=== PATIENT | male | born 1990 | race African-American/Black ===

== ENCOUNTER 2017-11-06 22:16 | Emergency (ER) | payer MEDICAID ==
[~2017-11-06] VITALS: Ht 195.6 cm; Wt 113.4 kg
[2017-11-06 22:25] VITALS: BP 133/81
[2017-11-06] MEDS ORDERED: Ketorolac 30mg Inj IV ONE (23:15)
[2017-11-06] MEDS ORDERED: Dicyclomine HCl 10mg/5ml oral soln ORAL ONE (23:15)
[2017-11-06 23:47] LABS: ANION GAP 6 mmol/L (5-15); BLOOD UREA NITROGEN 16 mg/dL (7-18); CALCIUM 9.2 MG/DL (8.5-10.1); CARBON DIOXIDE 33 MMOL/L (21-32); CHLORIDE 97 MMOL/L (98-107); CREATININE 1.4 MG/DL (0.55-1.30); POTASSIUM 3.6 MMOL/L (3.5-5.1); SODIUM 136 MMOL/L (136-145)
[2017-11-06 23:51] LABS: ALANINE AMINOTRANSFERASE 54 U/L (12-78); ALBUMIN 4.1 G/DL (3.4-5.0); ALBUMIN/GLOBULIN RATIO 0.9 (1.0-2.7); ALKALINE PHOSPHATASE 82 U/L (46-116); ASPARTATE AMINO TRANSFERASE 36 U/L (15-37); BILIRUBIN,TOTAL 0.4 MG/DL (0.2-1.0)
[2017-11-06 23:55] LABS: HEMATOCRIT 44.8 % (42.0-52.0); HEMOGLOBIN 16.4 G/DL (14.2-18.0); MEAN CORPUSCULAR VOLUME 89 FL (80-99); PLATELET COUNT 141 K/UL (150-450); RED BLOOD COUNT 5.04 M/UL (4.70-6.10); RED CELL DISTRIBUTION WIDTH 11.2 % (11.6-14.8); WHITE BLOOD COUNT 7.7 K/UL (4.8-10.8)
[2017-11-06 23:55] LABS: APPEARANCE,URINE CLEAR; BILIRUBIN, URINE NEGATIVE (NEGATIVE); GLUCOSE, URINE (UA) NEGATIVE (NEGATIVE); KETONES,URINE 1+ (NEGATIVE); LEUKOCYTE ESTERASE ,URINE NEGATIVE (NEGATIVE); NITRITE,URINE NEGATIVE (NEGATIVE); PH,URINE 5 (4.5-8.0); PROTEIN,URINE 2+ (NEGATIVE); UROBILINOGEN,URINE NORMAL MG/DL (0.0-1.0)
[2017-11-06 23:57] LABS: COLOR,URINE YELLOW
[2017-11-07 00:40] VITALS: BP 116/67
[2017-11-07] MEDS ORDERED: DICYCLOMINE HCL10 MG PO (00:59)
[2017-11-07] MEDS ORDERED: LOPERAMIDE2 M1 PO (00:59)
[2017-11-07 01:26] VITALS: BP 116/67
--- NOTE | 2017-11-11 06:56 | Emergency Room Report ---
History of Present Illness General Chief Complaint: Nausea, Vomiting, and Diarrhea Source: Patient Present Illness HPI Patient 27-year-old male who presented after increased abdominal discomfort as well as vomiting and diarrhea. The patient gradual onset of symptoms. Patient reports having intermittent episodes of crampy pain worse on the left side. Patient had not been having any hematemesis or bloody stools. Patient denied any recent bad food exposure. Patient had no recent travel. He denies any mucoid stools. The patient denies prior surgical history.The patient reported feeling mildly lightheaded. Allergies: Coded Allergies: No Known Allergies (Unverified , 11/06/17) Patient History Past Medical History: see triage record Reviewed Nursing Documentation: PMH: Agreed; PSxH: Agreed Nursing Documentation-PMH Past Medical History: No Stated History Review of Systems All Other Systems: negative except mentioned in HPI Physical Exam Sp02 EP Interpretation: reviewed, normal General Appearance: normal inspection, well appearing, no apparent distress, alert, GCS 15, non-toxic Head: atraumatic ENT: normal ENT inspection, hearing grossly normal, normal voice Neck: normal inspection, full range of motion, supple, no bony tend Respiratory: normal inspection, lungs clear, normal breath sounds, no respiratory distress, no retraction, no wheezing Cardiovascular #1: regular rate, rhythm, no edema Gastrointestinal: normal inspection, normal bowel sounds, non tender, soft, no guarding, no hernia Genitourinary: no CVA tenderness Musculoskeletal: normal inspection, back normal, normal range of motion Neurologic: normal inspection, alert, oriented x3, responsive, machine setter automatic III-XII nml as tested, speech normal Psychiatric: normal inspection, judgement/insight normal, mood/affect normal Skin: normal inspection, normal color, no rash Medical Decision Making Diagnostic Impression: Primary Impression: Gastroenteritis and colitis, viral ER Course Patient presented for abdominal pain. Differential diagnoses included ischemic bowel, appendicitis, perforated viscus, abdominal aortic aneurysm, inferior myocardial infarction, viral gastroenteritis Because of complexity of patient's case laboratory testing and imaging studies were ordered. Patient started on IV fluids as well as IV antispasmodics. The patient was noted to have what appears to be a viral gastroenteritis. Patient was advised to be rechecked by his primary care physician in one to 2 days. The patient is given prescriptions for symptomatic treatment.The patient is advised to follow up with primary care doctor in 1-2 days. Patient is advised to return if any worsening condition or if any changes in status that are concerning. This report is dictated with [employer] e learning coordinator software which may occasionally lead to discrepancies related to use of this software. Labs Test 11/06/17 23:20 11/06/17 23:45 White Blood Count 7.7 K/UL (4.8-10.8) Red Blood Count 5.04 M/UL (4.70-6.10) Hemoglobin 16.4 G/DL (14.2-18.0) Hematocrit 44.8 % (42.0-52.0) Mean Corpuscular Volume 89 FL (80-99) Mean Corpuscular Hemoglobin 32.6 PG (27.0-31.0) Mean Corpuscular Hemoglobin Concent 36.6 G/DL (32.0-36.0) Red Cell Distribution Width 11.2 % (11.6-14.8) Platelet Count 141 K/UL (150-450) Mean Platelet Volume 7.7 FL (6.5-10.1) Neutrophils (%) (Auto) % (45.0-75.0) Lymphocytes (%) (Auto) % (20.0-45.0) Monocytes (%) (Auto) % (1.0-10.0) Eosinophils (%) (Auto) % (0.0-3.0) Basophils (%) (Auto) % (0.0-2.0) Differential Total Cells Counted 100 Neutrophils % (Manual) 55 % (45-75) Lymphocytes % (Manual) 32 % (20-45) Monocytes % (Manual) 12 % (1-10) Eosinophils % (Manual) 1 % (0-3) Basophils % (Manual) 0 % (0-2) Band Neutrophils 0 % (0-8) Platelet Estimate Decreased Platelet Morphology Normal Red Blood Cell Morphology Normal Sodium Level 136 MMOL/L (136-145) Potassium Level 3.6 MMOL/L (3.5-5.1) Chloride Level 97 MMOL/L (98-107) Carbon Dioxide Level 33 MMOL/L (21-32) Anion Gap 6 mmol/L (5-15) Blood Urea Nitrogen 16 mg/dL (7-18) Creatinine 1.4 MG/DL (0.55-1.30) Estimat Glomerular Filtration Rate > 60 mL/min (>60) Glucose Level 112 MG/DL (74-106) Calcium Level 9.2 MG/DL (8.5-10.1) Total Bilirubin 0.4 MG/DL (0.2-1.0) Aspartate Amino Transf (AST/SGOT) 36 U/L (15-37) Alanine Aminotransferase (ALT/SGPT) 54 U/L (12-78) Alkaline Phosphatase 82 U/L (46-116) Total Protein 8.7 G/DL (6.4-8.2) Albumin 4.1 G/DL (3.4-5.0) Globulin 4.6 g/dL Albumin/Globulin Ratio 0.9 (1.0-2.7) Urine Color Yellow Urine Appearance Clear Urine pH 5 (4.5-8.0) Urine Specific Counce 1.025 (1.005-1.035) Urine Protein 2+ (NEGATIVE) Urine Glucose (UA) Negative (NEGATIVE) Urine Ketones 1+ (NEGATIVE) Urine Occult Blood 1+ (NEGATIVE) Urine Nitrite Negative (NEGATIVE) Urine Bilirubin Negative (NEGATIVE) Urine Urobilinogen Normal MG/DL (0.0-1.0) Urine Leukocyte Esterase Negative (NEGATIVE) Urine RBC 2-4 /HPF (0 - 0) Urine WBC 0-2 /HPF (0 - 0) Urine Squamous Epithelial Cells Occasional /LPF Urine Bacteria Occasional /HPF (NONE) Urine Mucus Moderate /LPF (NONE/OCC) Status: improved Disposition: HOME, SELF-CARE Condition: Stable Scripts Loperamide Hcl (LOPERAMIDE) 2 Mg Tablet 2 MG PO Q12HR for diarhea, #14 TAB Prov: Jack Maria 11/07/17 Dicyclomine Hcl* (DICYCLOMINE HCL*) 10 Mg Capsule 10 MG PO QID, #30 CAP Prov: Jack Maria 11/07/17 Referrals: NOT CHOSEN IPA/,REFERRING Patient Instructions: Viral Gastroenteritis, Adult Jack Maria November 11, 2017 06:56
== END 2017-11-07 01:30 | disposition home or self-care (01) ==
LOC: EMR 22:44
DX: A08.4 Viral intestinal infection, unspecified (principal)
CPT/HCPCS: 36415; 80053; 81001; 85007; 85025; 96374; 96375; 99283; J1885; J2405

== ENCOUNTER 2019-03-03 11:23 | Emergency (ER) | payer MEDICAID ==
[~2019-03-03] VITALS: Ht 195.6 cm; Wt 127.0 kg
[~2019-03-03 11:23] MED LIST: DICYCLOMINE HCL10 MG PO; LOPERAMIDE2 M1 PO
[2019-03-03 11:32] VITALS: BP 150/99
[2019-03-03] MEDS ORDERED: TRAMADOL HCL50 MG ORAL (11:37)
[2019-03-03] MEDS ORDERED: IBUPROFEN600 MG ORAL (11:37)
--- NOTE | 2019-03-03 11:46 | NUR ---
ED Nurse Note: Pt. AAOx4. ambulatory. pt walked in due to bilateral hand fracture, pt hit the wall yesterday and was seen in [facility].
--- NOTE | 2019-03-03 11:54 | Emergency Room Report ---
History of Present Illness General Chief Complaint: Upper Extremity Injury Source: Patient Present Illness HPI Patient punched a wall with both hands yesterday after being denied to admission to [facility]. He was driven back and yesterday was seen at [facility] with bilateral boxers fractures. He was told to follow- up with an construction specialist. They told him he could come here. He does have some pain. He took ibuprofen earlier today. He was told that he might need to have surgery on his right hand. He denies any numbness at this time. There are no other injuries. He denies pain to the triage nurse. Right-handed. No other somatic complaints. No major medical illnesses. Allergies: Coded Allergies: No Known Allergies (Unverified , 11/06/17) Patient History Past Medical History: none Social History: Reports: smoking Social History Narrative Here with girlfriend Reviewed Nursing Documentation: PMH: Agreed; PSxH: Agreed Review of Systems Musculoskeletal: Reports: see HPI Skin: Denies: lesions Psychiatric: Reports: see HPI Neurological: Reports: see HPI Hematologic/Lymphatic: Denies: easy bruising Physical Exam Vital Signs Date Time Temp Pulse Resp B/P (MAP) Pulse Ox O2 Delivery O2 Flow Rate FiO2 03/03/19 11:32 97.9 91 16 150/99 (116) 97 Room Air Sp02 EP Interpretation: reviewed, normal General Appearance: no apparent distress, GCS 15 Head: normocephalic Eyes: bilateral eye normal inspection, bilateral eye PERRL ENT: moist mucus membranes Neck: full range of motion Respiratory: normal inspection, speaking full sentences Cardiovascular #1: regular rate, rhythm Cardiovascular #2: 2+ radial (R) - Good capillary refill, 2+ radial (L) - Good capillary refill Gastrointestinal: normal inspection Musculoskeletal: gait/station normal, other - Bilateral ulnar splints with ASIS applied. Swelling in his hands bilaterally. Neurologic: alert, oriented x3, distal neuro normal Psychiatric: mood/affect normal Skin: normal color Medical Decision Making Diagnostic Impression: Primary Impression: Boxers fracture Qualified Codes: S62.339D - Displaced fracture of neck of unspecified metacarpal bone, subsequent encounter for fracture with routine healing ER Course The patient presents with bilateral boxers fractures of both hands. X-rays need to be reviewed here. In addition we will attempt to contact construction specialist for follow-up. The patient declines medication at this time. Delay for reading of x-rays. X-ray reviewed by me. Bilateral fifth metacarpal fractures. Left midshaft with angulation. Right base with comminution. No angulation. Discussed and showed x-ray results with patient. Splints reviewed by me and appropriately applied by [facility], position excellent. Distal neurovascular intact. We did not apply the splints. Attempted to secure follow-up with on-call orthopedic doctor. They declined the patient based on insurance. Discussed this with patient. Discussed the need for outpatient follow-up. Patient stable for outpatient observation and treatment. Other X-Ray Diagnostic Results Other X-Ray Diagnostic Results #1: X-Ray ordered: Right hand # of Views/Limited Vs Complete: 3 View Indication: Other EP Interpretation: Yes Interpretation: no dislocation, other - Soft tissue swelling and comminuted fracture base of fifth metacarpal Impression: Other Electronically Signed by: Electronically signed by Brandon Penn MD Other X-Ray Diagnostic Results #2: X-Ray ordered: Left hand # of Views/Limited Vs Complete: 3 View Indication: Other EP Interpretation: Yes Interpretation: no dislocation, other - Midshaft fracture fifth metacarpal with angulation Impression: Other Electronically Signed by: Electronically signed by Brandon Penn MD Last Vital Signs Date Time Temp Pulse Resp B/P (MAP) Pulse Ox O2 Delivery O2 Flow Rate FiO2 03/03/19 13:20 97.9 89 16 138/89 99 Room Air Status: improved Disposition: HOME, SELF-CARE Condition: Improved Brandon Penn MD Mar 03, 2019 11:54
[2019-03-03 13:20] VITALS: BP 138/89
--- NOTE | 2019-03-03 13:25 | NUR ---
ER DISCHARGE NOTE: Patient is cleared to be discharged per ERMD, pt is aox4, on room air, with stable vital signs. pt was given dc instructions, pt was able to verbalize understanding, pt id band removed. pt is able to ambulate with steady gait. pt took all belongings.
--- NOTE | 2019-03-03 16:34 | Diagnostic Imaging Report ---
Indication: Left hand pain Technique: 3 views left hand Comparison: none Findings: There is an anteriorly angulated fracture of the distal fifth metacarpal neck. No other acute fractures. No dislocations. Impression: Positive for fifth metacarpal neck fracture.
== END 2019-03-03 13:25 | disposition home or self-care (01) ==
LOC: EMR 12:32
DX: S62.337A Displaced fracture of neck of fifth metacarpal bone, left hand, initial encounter for closed fracture (principal); S62.316A Displaced fracture of base of fifth metacarpal bone, right hand, initial encounter for closed fracture; W22.01XA Walked into wall, initial encounter; Y92.89 Other specified places as the place of occurrence of the external cause
CPT/HCPCS: 99283

== ENCOUNTER → 2019-08-06 | Emergency (ER) | payer MEDICAID ==
[~2019-08-06] VITALS: Ht 195.6 cm; Wt 127.0 kg
[~2019-08-06] MED LIST changes: +ALBUTEROL SULF8.5 GM INH; +IBUPROFEN600 MG ORAL; +Ketorolac 30mg Inj IM ONE; +TRAMADOL HCL50 MG ORAL; +ZOFRAN4 MG ORAL
--- NOTE | 2019-08-06 21:56 | NUR ---
ED Nurse Note: pt presents to ED c/o cough, congestion, fevers and chills for 5 days. pt states that he has taken mucinex, advil and tylenol without much relief of symptoms. pt also reports some nausea without vomiting. pt denies getting a flu shot this year
[2019-08-06 21:57] VITALS: BP 123/73
--- NOTE | 2019-08-06 22:17 | Emergency Room Report ---
History of Present Illness General Chief Complaint: Flu Like Symptoms Source: Patient Present Illness HPI 29-year-old male presents with cough, congestion x5 days no aggravating or alleviating factors severity is moderate, constant patient also endorses some nausea, muscle aches, patient endorses subjective fever/chills, patient thinks he may be coming down with the flu, patient also did not get his flu shot today patient presents for evaluation Allergies: Coded Allergies: No Known Allergies (Unverified , 11/06/17) Patient History Past Medical History: see triage record Reviewed Nursing Documentation: PMH: Agreed; PSxH: Agreed Nursing Documentation-PMH Hx Asthma: Yes Review of Systems All Other Systems: negative except mentioned in HPI Physical Exam Vital Signs Date Time Temp Pulse Resp B/P (MAP) Pulse Ox O2 Delivery O2 Flow Rate FiO2 08/06/19 21:46 99.3 90 16 123/73 (90) 95 Sp02 EP Interpretation: reviewed, normal General Appearance: well appearing, no apparent distress, alert Head: normocephalic, atraumatic Eyes: bilateral eye PERRL, bilateral eye EOMI ENT: uvula midline, moist mucus membranes, nasal congestion Neck: supple, thyroid normal, supple/symm/no masses Respiratory: lungs clear, no respiratory distress, no retraction, no accessory muscle use Cardiovascular #1: normal peripheral pulses, regular rate, rhythm, no edema, no gallop, no murmur Gastrointestinal: non tender, soft, no guarding, no rebound Musculoskeletal: normal inspection Neurologic: alert, oriented x3 Psychiatric: mood/affect normal Skin: no rash, warm/dry Medical Decision Making Diagnostic Impression: Primary Impression: Influenza-like symptoms ER Course 29-year-old male presents with flulike symptoms, differential diagnosis includes flu, viral syndrome, pneumonia Chest x-ray negative, patient out of the window for Tamiflu Counseled patient supportive care disposition home with return precautions Chest X-Ray Diagnostic Results Chest X-Ray Diagnostic Results : Chest X-Ray Ordered: Yes # of Views/Limited/Complete: 1 View Indication: Other - Cough EP Interpretation: Yes Interpretation: no consolidation, no effusion, no pneumothorax, no acute cardiopulmonary disease Impression: No acute disease Electronically Signed by: Jose De Jesus Castaneda MD Last Vital Signs Date Time Temp Pulse Resp B/P (MAP) Pulse Ox O2 Delivery O2 Flow Rate FiO2 08/06/19 21:57 99.3 90 16 123/73 95 Disposition: HOME, SELF-CARE Condition: Stable Scripts Ondansetron (Zofran) 4 Mg Tablet 4 MG ORAL Q8H PRN for Nausea & Vomiting, #10 TAB 0 Refills Prov: Jose De Jesus Castaneda MD 08/06/19 Referrals: [facility] Patient Instructions: Influenza, Adult, [id number] Additional Instructions: The patient was provided with discharge instructions, notified to follow-up with a primary care doctor and or specialist in the next 24-48 hours, and to return to the ED if they have worsening of their symptoms. Please note that this report is being documented using [employer] technology. This can lead to erroneous entry secondary to incorrect interpretation by the dictating instrument. Jose De Jesus Castaneda MD Aug 06, 2019 22:17
[2019-08-06 22:25] VITALS: BP 123/73
--- NOTE | 2019-08-06 22:25 | NUR ---
ER DISCHARGE NOTE: Patient cleared for DC by Dr. Tellez. Patient verbalized understanding of DC and prescription instructions. all medical devices such as ID band removed. patient AxO x 4, ambulates with steady gait, pt left with all belongings
--- NOTE | 2019-08-06 23:12 | Diagnostic Imaging Report ---
EXAM: XR Chest, 1 View CLINICAL HISTORY: COUGH TECHNIQUE: Frontal view of the chest. COMPARISON: No relevant prior studies available. FINDINGS: No significant cardiac enlargement. Negative for parenchymal consolidation, pneumothorax or pleural fluid collections.
== END | disposition home or self-care (01) ==
LOC: EMR 23:17
DX: R05 Cough (principal); R11.0 Nausea; R50.9 Fever, unspecified
CPT/HCPCS: 71045; 96372; J1885; J8540; Z7502; 99283